=== PATIENT | female | born 1970 | race Caucasian/White ===

== ENCOUNTER 2016-07-30 08:44 | Emergency (ER) | payer MEDICAID ==
[~2016-07-30] VITALS: Ht 167.6 cm; Wt 153.4 kg
[2016-07-30 08:48] VITALS: Ht 167.6 cm; Wt 153.4 kg
[2016-07-30] MEDS ORDERED: FLUT9.9S NAS (09:08)
[2016-07-30] MEDS ORDERED: MUPI15CR12 TOP ×2 (09:09→09:37)
--- NOTE | 2016-07-30 09:31 | ERPDOC ---
Departure Disposition Decision Date: Jul 30, 2016 Disposition Decision Time: 09:33 Disposition: 01 DISCHARGED HOME, SELF-CARE Impression Impression Impression: Primary Impression: Cellulitis of left leg Severity: Moderate Condition: Improved Seen By: Physician only Patient Instructions: Cellulitis (ED) Problems/Meds/Labs Reviewed?: Yes Medications reviewed and manag: Yes Additional Instructions: Bactrim DS twice daily for 10 days. Mupricin ointment to leg four times daily. Percocet 5mg twice daily as needed for pain. Follow up with Primary Care Provider. Follow up care ordered?: Yes Mental Status: Alert, Oriented Scripts Mupirocin Calcium (Mupirocin) 15 Gm Cream..g. 1 APPLIC TOP QID, #1 TUBE Prov: SHERRY HOYOS MD 07/30/16 Sulfamethoxazole/Trimethoprim (Bactrim Ds Tablet) 1 Each Tablet 1 TAB PO BID, #20 TAB 1 Refill Take 1 tablet, by mouth, 2 times a day. Prov: SHERRY HOYOS MD 07/30/16 Oxycodone HCl/Acetaminophen (Percocet 5-325 mg Tablet) 5-325 Tablet 1 TAB PO BID for PAIN, #10 TAB Take 1 tablet, by mouth, 4 times a day. 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 Allergies: Coded Allergies: morphine (Verified Allergy, Unknown, ITCHING, 07/30/16) Physical Exam General Vitals and Pain First Documented Vital Signs Date Time Temp Pulse Resp B/P Pulse Ox O2 Delivery O2 Flow Rate FiO2 07/30/16 08:48 98.3 122 18 137/95 98 Room Air Weight: Kilograms: 153.400 Height (feet): 5 Height (inches): 6.00 Triage Pain Scale: Progress Progress Progress Cellulitis with abscess forming left lower leg. SHERRY HOYOS MD Jul 30, 2016 09:31
[2016-07-30] MEDS ORDERED: OXYC1TAB8 PO (09:37)
[2016-07-30] MEDS ORDERED: SULF1TAB42 PO (09:37)
[2016-07-30 09:45] VITALS: BP 130/88; PULSE 105; RESP 16; TEMP 98.3; O2SAT 99
--- NOTE | 2016-07-30 09:45 | NUR ---
DISMISSAL DISMISSAL INSTRUCTIONS TO PT WITH RX X3. NO FURTHER QUESTIONS AT THIS TIME. PT LEFT DEPARTMENT AMBUALTORY
== END 2016-07-30 09:45 | disposition home or self-care (01) ==
LOC: ED 08:44
DX: L03.116 Cellulitis of left lower limb (principal); Z86.14 Personal history of Methicillin resistant Staphylococcus aureus infection